=== PATIENT | male | born 2000 | race Caucasian/White ===

== ENCOUNTER 2021-12-12 21:04 | Emergency (ER) | payer OTHER ==
[2021-12-13] MEDS ORDERED: NORFLEX 100 MG100 MG PO (02:31)
[2021-12-13] MEDS ORDERED: IBUPROFEN600 MG PO (02:31)
== END 2021-12-13 02:51 | disposition home or self-care (01) ==
LOC: ER1 21:04
DX: M76.9 Unspecified enthesopathy, lower limb, excluding foot (principal)
CPT/HCPCS: 96372; 99283; J1100; J1885; J2360

== ENCOUNTER → 2021-12-22 | Outpatient (CLI) | payer OTHER ==
[~2021-12-22] MED LIST: IBUPROFEN600 MG PO; NORFLEX 100 MG100 MG PO
== END ==
LOC: KOH-I 09:58
DX: M25.571 Pain in right ankle and joints of right foot (principal)
CPT/HCPCS: 73610

== ENCOUNTER → 2022-01-09 | Outpatient (CLI) | payer OTHER | LOC: KOH-I 12:48 | DX: I82.401 Acute embolism and thrombosis of unspecified deep veins of right lower extremity (principal) | CPT/HCPCS: 93971 ==